=== PATIENT | male | born 1940 | race Caucasian/White ===

== ENCOUNTER 2018-12-20 15:54 | Emergency (ER) | payer MEDICARE, BC, SELFPAY ==
[2018-12-20 16:02] VITALS: BP 153/85; PULSE 81; RESP 16; TEMP 36.7; O2SAT 97
--- NOTE | 2018-12-20 16:06 | DI.CT_ITS ---
SYMPTOMS/DIAGNOSIS: TRAUMA NONCONTRAST HEAD CT: There is a large right scalp laceration. There is no evidence of skull fracture or intracranial hemorrhage. The orbits appear intact. Mucous retention cysts are seen in the left maxillary sinus. There is slight cerebral atrophy, consistent with the patient's age. No infarct or mass is identified. IMPRESSION: Large right frontal scalp laceration. No acute intracranial abnormality. CT OF THE CERVICAL SPINE: There is no evidence of fracture. The alignment is normal. There are degenerative disc changes from C 4 - 5 through C 6 - 7 as well as at C 1 - 2. There is no prevertebral soft tissue swelling. No pneumothorax is seen at the lung apices. IMPRESSION: Degenerative changes. No acute abnormality.
--- NOTE | 2018-12-20 16:10 | ED.GENADUL_ITS ---
Discharge Plan Disposition Patient Disposition: HOME Condition: Improving Discharge Details Chief Complaint: Laceration Clinical Impression: Complex laceration of face, Contusion of face, Subconjunctival bleed Primary Care Provider: Unknown,Unknown ED Provider: Dorina Gonzalez Home Meds and New Rx's Prescriptions: New cephalexin [Keflex] 500 mg capsule 500 mg PO BID Qty: 10 RF: 0 Continued multivitamin [One Daily] 1 EACH tablet 1 ea PO DAILY RF: 0 aspirin [Aspir-81] 81 MG tablet,delayed release (DR/EC) 81 mg PO DAILY RF: 0 amlodipine [Norvasc] 10 MG tablet 10 mg PO DAILY Qty: 90 RF: 4 omeprazole [Prilosec] 20 MG capsule,delayed release(DR/EC) 20 mg PO DAILY PRNRF: 0 magnesium chloride [Mag 64] 64 MG tablet,delayed release (DR/EC) 1 tab PO DAILY RF: 0 FLONASE 16 GM SPRAY.SUSP 50 mcg NS BID Qty: 1 RF: 3 levothyroxine [Synthroid] 100 MCG tablet 100 mcg PO DAILY Qty: 90 RF: 3 ibuprofen [Advil] 200 MG tablet 800 mg PO DAILY RF: 0 atorvastatin 10 mg Tablet 10 mg PO DAILY RF: 0 lisinopril 10 mg Tablet 10 mg PO DAILY RF: 0 Discharge Instructions Instructions: Contusion in Adults (ED), Facial Laceration (ED) Additional Instructions: The CAT scan of your head and neck was without abnormality. Your laceration was closed with #13 stitches. Please keep current dressing on until tomorrow. At that time, you may wash with running water and soap but please do not soak. Monitor for signs of infection including redness, warmth, drainage, increased pain, fever/chills. If these arise please seek care urgently once again. Otherwise, please follow-up with primary care in 5 to 7 days for evaluation of wound and suture removal. Tylenol and/or ibuprofen as needed for discomfort. Ice to affected area may also help with swelling and discomfort Tetanus updated today Discharge Data Discharge Date/Time-TO BE ENTERED AT DEPARTURE: 12/20/18 19:05 Medical Decision Making Patient is a 78 year old male, brought in via EMS, for evaluation of laceration and head trauma. REports he was working in his yard when he tripped over a stick and fell forward. Reports trying to catch himself and by doing himself propelling himself forward at a increased rate of speed. States he struck his forehead against a large root. No LOC. Has pain over the area of contusion but no cinda HARO. Denies other injury. No visual changes, wekaness, sensory changes. A&Ox3. Has a large irregularly shaped laceration to the right side of his forehead. Ecchymosis under the right eye and right eye injection, no FB visualized. Patient has full ROM of neck, no midline tenderness. Trauma exam otherwise benign. Will exam eye with flourosceine. Plan to CT head, patient is not anticoagulated. Once back from CT will close wound, discussed plan with patient who voices understanding and agrees. I was evaluated with floor seen using slit lamp. No foreign body or debris is noted. No corneal abrasion. Does appear to be a subconjunctival hemorrhage inferiorly. PERRLA, EOM intact, vision unchanged. CT reviewed by radiologist: There is a large right scalp laceration. There is no evidence of skull fracture or intracranial hemorrhage. The orbits appear intact. Mucous retention cysts are seen in the left maxillary sinus. There is slight cerebral atrophy, consistent with the patient's age. No infarct or mass is identified. IMPRESSION: Large right frontal scalp laceration. No acute intracranial abnormality. CT OF THE CERVICAL SPINE: There is no evidence of fracture. The alignment is normal. There are degenerative disc changes from C 4 - 5 through C 6 - 7 as well as at C 1 - 2. There is no prevertebral soft tissue swelling. No pneumothorax is seen at the lung apices. IMPRESSION: Degenerative changes. No acute abnormality. Patient I discussed techniques to cleanse and close the forehead laceration. He does have a large 12 cm flap laceration on the right side of his forehead. Galea intact. There is no gross debris visualized. Patient I discussed risk/benefits of the procedure as well as expected procedural steps. He voiced understanding and wished to receive. Procedure note: Using standard sterile technique, the wound was first anesthetized with 1% lidocaine with epinephrine. 10 cc was used. The wound was then copiously irrigated with sterile saline and chlorhexidine. Large amount of foreign debris, which appeared consistent with leaves, was removed. This was again cleansed and foreign body was completely removed. Attention was turned to closure. 4-0 Vicryl was used to first aligned flap. #3 stitches were placed. #13 a simple interrupted stitches were then placed into the skin with a 5-0 nylon. Patient tolerated this procedure well Patient discussed wound care in depth. Given the gross contamination, will place the patient prophylactically on antibiotics. Also plan to update tetanus. Advised to keep current dressing on until tomorrow. After that time, he may leave the dressing off work she is to apply dressing if needed. Advised he may wash with running water and soap should not soak or submerge. We discussed the signs symptoms of infection when to seek care urgently once again. [place], and is returning home in 2 days. Advised to contact his primary care to have sutures removed in the next 5 to 7 days. He was given strict return precautions. All his questions and concerns were addressed and he is agreement with this plan. HPI General Mode of arrival: EMS . Date/Time Provider Initiated Documentation: 12/20/18 15:58 . Limitations to Documentation: no limitations . Information obtained by: patient, family, EMS and RN notes reviewed . History of Present Illness 78 year old M presents to the emergency department with the chief complaint of Trauma with forehead laceration, described as moderate, with intensity rated at 8. Quality is described as aching, and is localized to the face. Patient reports no radiation. Patient started experiencing this minute(s) and it has been constant. No relieving factors improve symptom(s), No exacerbating factors reported . Patient notes headaches (pain around laceration); denies confusion, chest pain, cough, fever/chills, loss of appetite, nausea/vomiting, shortness of breath, syncope and weakness. Patient did receive the following treatments prior to arrival, none Related Data Home Medications Medication Instructions Recorded Confirmed amlodipine [Norvasc] 10 mg PO DAILY #90 tab-cap 01/10/13 08/05/14 aspirin [Aspir-81] 81 mg PO DAILY tab-cap 01/10/13 12/20/18 magnesium chloride [Mag 64] 1 tab PO DAILY 01/10/13 12/20/18 multivitamin [One Daily] 1 ea PO DAILY 01/10/13 12/20/18 omeprazole [Prilosec] 20 mg PO DAILY PRN 01/10/13 08/05/14 ibuprofen [Advil] 800 mg PO DAILY 07/28/14 12/20/18 levothyroxine [Synthroid] 100 mcg PO DAILY #90 tab-cap 11/22/14 12/20/18 atorvastatin 10 mg PO DAILY 12/20/18 12/20/18 cephalexin [Keflex] 500 mg PO BID #10 cap 12/20/18 lisinopril 10 mg PO DAILY 12/20/18 12/20/18 Previous Rx's Medication Instructions Recorded cephalexin [Keflex] 500 mg PO BID #10 cap 12/20/18 Allergies Allergy/AdvReac Type Severity Reaction Status Date / Time lisinopril AdvReac Unknown COUGH Unverified 12/20/18 16:07 Review of Systems Constitutional Reports as per HPI, Denies chills, Denies fatigue, Denies fever(s), Reports headache(s) (around area of forehead laceration) and Denies weakness Eyes Reports as per HPI, Denies blurry vision, Denies change in vision and Denies loss of vision ENT Denies abnormal hearing and Reports headache(s) (around area of forehead laceration) Cardiovascular Reports as per HPI, Denies chest pain and Denies dyspnea Respiratory Reports as per HPI, Denies cough, Denies pain on inspiration, Denies pain with cough and Denies dyspnea Gastrointestinal Reports as per HPI, Denies abdominal pain, Denies nausea and Denies vomiting Genitourinary Reports as per HPI and Denies urinary incontinence Musculoskeletal Reports as per HPI Integumentary/Breasts Reports as per HPI and Reports wounds Neurologic Reports as per HPI, Denies abnormal hearing, Denies abnormal movements, Denies abnormal speech, Reports headache(s) (around area of forehead laceration), Denies lack of coordination, Denies focal weakness, Denies loss of vision, Denies seizure-like activity, Denies paresthesias and Denies weakness Endocrine Denies fatigue [facility] Social History Smoking/Tobacco Use Status: Never Alcohol Intake: current Alcohol Intake frequency: 0-2 drinks per day Alcohol type: wine Drug use: Never Exam Const General: cooperative, healthy appearing, comfortable, no acute distress, well developed and well groomed Nutritional Appearance: average body habitus and well nourished Orientation: alert, awake and oriented x3 HENMT Head: no palpable skull fracture, normocephalic, no Mayes's sign, no hematomas, laceration (large flap laceration to right side of forehead 12cm. Galea intact), no occipital foramen tenderness, no palpable skull fracture, no raccoon eyes, scalp tenderness and periorbital ecchymosis (under right eye) Ears: hearing grossly normal bilaterally, external ears normal and TM's normal bilaterally General nose exam: external nose normal Mouth: oral mucosae normal, lip normal and tongue normal Teeth and gingiva: dentition normal (bite aligns well, no pain) Throat: posterior oropharynx normal Eyes General: appearance normal, both eyes and all related structures Visual Haynes: normal visual haynes by confrontation Alignment and Position: alignment normal Periorbital: periorbital findings normal Eyelids: eyelids normal Conjunctivae: conjunctivae normal Pupils: PERRL EOM: EOM intact bilaterally Neck Neck: normal visual inspection, full ROM, no lymphadenopathy, no meningeal signs, trachea midline and supple Chest Chest: normal inspection of the chest, normal palpation of entire chest wall, no crepitus and no localized rib tenderness Resp Effort & Inspection: normal respiratory effort, able to speak in complete sentences and no respiratory distress Auscultation: clear to auscultation bilaterally, no rales, no rhonchi and no wheezes Cardio Rate: regular rate Rhythm: regular rhythm Heart Sounds: S1 normal and S2 normal GI Inspection: normal to inspection, no abdominal wall ecchymosis, no edema and non-distended Palpation: soft, no hepatosplenomegaly, not firm, no guarding, no pulsatile masses, not rigid and nontender Auscultation: normal bowel sounds Back/Spine/Pelvis Back: no CVA tenderness Cervical Spine: normal cervical lordosis and cervical ROM normal Thoracic/Lumbar Spine: thoracic and lumbar spine normal to inspection, thoraco-l umbar ROM normal, No thoraco-lumbar ROM limited, No thoraco-lumbar spasm and No thoracic spinal tenderness Pelvis: no pain with anterior-posterior compression and no pain with lateral compression Skin Trauma: laceration (large laceration forehead as above) Neuro General: alert, awake, oriented x3, gait normal, tone normal and moves all extremities Cranial Nerves: CN's II-XI intact bilaterally Cognition: normal cognition Speech: speech normal Gait: normal gait Motor: muscle tone normal throughout and strength 5/5 throughout Sensory Exam: no sensory deficits noted (no saddle paresthesias) Extrem General: normal to inspection, full ROM, normal capillary refill, no pedal edema and no calf tenderness Psych Appearance: grossly normal and well kempt Mental Status: mental status grossly normal Speech and Movement: speech and movement normal
--- NOTE | 2018-12-20 16:54 | DI.VRAD_ITS ---
EXAM: CT Head Without Contrast EXAM DATE/TIME: 12/20/2018 4:07 PM CLINICAL HISTORY: 78 years old, male; Injury or trauma; Initial encounter; Blunt trauma; Patient HX: Trauma, fall TECHNIQUE: Imaging protocol: Axial computed tomography images of the head without contrast. Coronal and sagittal reformatted images were created and reviewed. COMPARISON: No relevant prior studies available. FINDINGS: Brain: No intracranial hemorrhage or extra-axial fluid collection. No evidence of mass effect or midline shift. Barkley-white matter differentiation is intact. Ventricles: No ventriculomegaly. Bones/joints: No acute osseus lesion or fracture. Sinuses: Retention cyst in the left maxillary sinus. Mastoid air cells: Unremarkable. Soft tissues: Right frontal scalp laceration and contusion. IMPRESSION: 1. No acute intracranial pathology. 2. Right frontal scalp laceration and contusion. EXAM: CT Cervical Spine Without Contrast EXAM DATE/TIME: 12/20/2018 4:07 PM CLINICAL HISTORY: 78 years old, male; Injury or trauma; Initial encounter; Blunt trauma; Patient HX: Trauma, fall TECHNIQUE: Imaging protocol: Axial computed tomography images of the cervical spine without contrast. Coronal and sagittal reformatted images were created and reviewed. COMPARISON: No relevant prior studies available. FINDINGS: Vertebrae: Vertebral body heights are maintained. No locked or perched facets. Multilevel facet arthropathy. No acute cervical spine fracture. The dens is intact. Atlanto-axial intervals are normal. Discs/Spinal canal/Neural foramina: Multilevel degenerative changes with intervertebral disc height loss and osteophyte formation, with multilevel areas of mild to moderate canal stenosis. Soft tissues: Unremarkable. Lungs: Lung apices are clear. IMPRESSION: No acute cervical spine fracture. Dictated and Authenticated by: Gonzalo Chase MD. Ordering:JOVANY Cam MD
[2018-12-20 19:06] VITALS: BP 158/85; PULSE 85; O2SAT 98
== END 2018-12-20 19:05 | disposition home or self-care (01) ==
PROVIDERS: Emergency Provider Physician Assistant
DX: S01.81XA Laceration without foreign body of other part of head, initial encounter (principal); S00.83XA Contusion of other part of head, initial encounter; H11.31 Conjunctival hemorrhage, right eye; W18.31XA Fall on same level due to stepping on an object, initial encounter
CPT/HCPCS: 12044; 90471; 99284; 70450; 72125